=== PATIENT | male | born 1985 | race Caucasian/White ===

== ENCOUNTER 2016-08-20 00:26 | Day surgery (SDC) | payer OTHER ==
[~2016-08-20] VITALS: Ht 190.5 cm; Wt 88.6 kg
[~2016-08-20 00:26] MED LIST: PRD20T PO
[2016-08-20] MEDS ORDERED: GLUCAGON EMERGENCY 1 MG/KIT ONE (00:35)
[2016-08-20] MEDS ORDERED: GLUCAGON EMERGENCY 1 MG/KIT IV ONE ×2 (00:45→01:00)
[2016-08-20] MEDS ORDERED: OMEP40CA36 PO (00:58)
[2016-08-20] MEDS ORDERED: PANTOPRAZOLE 40 MG/10 ML (PROTONIX) VIAL IV ONE (01:15)
[2016-08-20] MEDS ORDERED: LORazepam INJ 2 MG/ML (ATIVAN) VIAL IVP ONE (01:15)
[2016-08-20] MEDS ORDERED: ONDANSETRON 4 MG/2 ML (SDV) Z0FRAN IVP ONE (01:15)
[2016-08-20] MEDS ORDERED: METOCLOPRAMIDE INJ 10 MG/2 ML (REGLAN) IVP ONE (01:15)
[2016-08-20 02:22] VITALS: BP 119/78
[2016-08-20] MEDS ORDERED: D5 1/2 NS 1000 ML IV SOLUTION 1,000 ML IV ONE (02:29)
[2016-08-20] MEDS: D5 1/2 NS 1000 ML IV SOLUTION 1,000 ML IV SCH ×2 (02:38→03:40)
[2016-08-20] MEDS ORDERED: ONDANSETRON 4 MG/2 ML (SDV) Z0FRAN IVP PRN (03:45)
[2016-08-20 04:02] VITALS: BP 129/85
[2016-08-20] MEDS ORDERED: CATHETER FLUSH 10 ML SYR IV PRN (05:00)
--- NOTE | 2016-08-20 05:04 | ED GI ---
General Chief Complaint: Foreign Body Stated Complaint: ESOPHAGEAL OBSTRUCTION Nursing Triage Note: PT STATES HAS PIECE OF STEAK CAUGHT IN THROAT FOR APPROX 3 HOURS Sepsis Screen: No Definite Risk Source of Information: Patient History of Present Illness Time Seen By Provider: 00:33 Initial Comments PT STATES HE WAS EATING STEAK TONIGHT AND IT HAS BECOME STUCK AND NOW CANNOT EVEN SWALLOW SALIVA--COMES BACK UP STATES IT OCCURRED 3 HOURS AGO HE STATES IT HAS HAPPENED MULTIPLE TIMES OVER THE LAST COUPLE OF YEARS, BUT HAS ALWAYS BEEN ABLE TO GET IT UNSTUCK, AND HAS NEVER SOUGHT CARE AT ANY TIME FOR THIS PROBLEM C/O MUCH PRESSURE IN CHEST--"FEELS LIKE A BIG GAS BUBBLE" NO CHOKING OR DIFFICULTY BREATHING OR WHEEZING. PCP: DR. HAWKINS Allergies and Home Medications Allergies Coded Allergies: sulfamethoxazole (Verified Allergy, Intermediate, RASH, 11/05/13) trimethoprim (Verified Allergy, Intermediate, RASH, 11/05/13) Penicillins (Verified Allergy, Unknown, HIVES, 11/05/13) Home Medications Omeprazole 40 Mg Capsule.dr, 40 MG PO DAILY, (Reported) Review of Systems Constitutional: no symptoms reported Respiratory: No Symptoms Reported Cardiovascular: See HPI Gastrointestinal: See HPI Genitourinary: No Symptoms Reported Musculoskeletal: no symptoms reported Skin: no symptoms reported Psychiatric/Neurological: No Symptoms Reported Endocrine: No Symptoms Reported Hematologic/Lymphatic: No Symptoms Reported Past Mhfndac-Aczrzk-Qphwnw Hx Patient Social History Alcohol Use: Denies Use Recreational Drug Use: No Smoking Status: Never a Smoker Recent Foreign Travel: No Contact w/Someone Who Travel: No Recent Infectious Disease Expo: No Recent Hopitalizations: No Physical Abuse Screen: No Sexual Abuse: No Immunizations Up To Date Tetanus Booster (TDap): Less than 5yrs Seasonal Allergies Seasonal Allergies: No Surgeries HX Surgeries: Yes (RIGHT KNEE/LEG FOR FX WHEN YOUNG) Surgeries: Orthopedic Respiratory Hx Respiratory Disorders: No Cardiovascular Hx Cardiac Disorders: No Neurological Hx Neurological Disorders: No Genitourinary Hx Genitourinary Disorders: No Gastrointestinal Hx Gastrointestinal Disorders: Yes (SELF-DX OF GERD; ESOPHAGEAL OBSTRUCTIONS) Gastrointestinal Disorders: Gastroesophageal Reflux Musculoskeletal Hx Musculoskeletal Disorders: Yes (RIGHT KNEE/LEG FX AND SURGICAL REPAIR CHILD) Endocrine Hx Endocrine Disorders: No HEENT HX ENT Disorders: No Cancer Hx Cancer: No Psychosocial Hx Psychiatric Problems: No Integumentary HX Skin/Integumentary Disorder: No Blood Transfusions Hx Blood Disorders: No Adverse Reaction to a Blood Tr: No Physical Exam Vital Signs VS - Last 72 Hours, by Label 08/20/16 00:40 Temp 98.5 Pulse 133 Resp 18 B/P (MAP) 126/88 Pulse Ox 96 Capillary Refill : Less Than 3 Seconds General Appearance: WD/WN, no apparent distress, other (TALKS WITHOUT DIFFICULTY, BUT SPITTING OUT SALIVA) Respiratory: chest non-tender, normal breath sounds, no respiratory distress, no accessory muscle use Cardiovascular: regular rate, rhythm, no edema, no murmur Gastrointestinal: normal bowel sounds, non tender, soft, no organomegaly, no pulsatile mass Extremities: normal inspection Back: normal inspection Neurologic/Psychiatric: cloth burler II-XII nml as tested, no motor/sensory deficits, alert, normal mood/affect, oriented x 3 Skin: normal color, warm/dry Progress/Results/Core Measures Results/Orders My Orders Orders - DAWN MARTINEZ DO Chest Pa/Lat (2 View) (08/20/16 00:34) Saline Lock/Iv-Start (08/20/16 00:37) Glucagon Emergency Kit (Glucagon Emergen (08/20/16 00:45) Glucagon Emergency Kit (Glucagon Emergen (08/20/16 00:35) Glucagon Emergency Kit (Glucagon Emergen (08/20/16 01:00) Medications Given in ED Current Medications Medications Dose Ordered Sig/Jose Luis Route Start Time Stop Time Status Last Admin Dose Admin Glucagon 1 mg ONCE ONCE IV 08/20/16 00:45 08/20/16 00:46 DC 08/20/16 00:45 1 MG Glucagon 1 mg ONCE ONCE IV 08/20/16 01:00 08/20/16 01:01 DC 08/20/16 00:58 1 MG Vital Signs/I&O Vital Sign - Last 12Hours 08/20/16 00:40 Temp 98.5 Pulse 133 Resp 18 B/P (MAP) 126/88 Pulse Ox 96 Blood Pressure Mean: 100 Progress Note : Progress Note PT DID VOMIT A LARGE AMOUNT OF LIQUID AND SOME FOOD DEBRIS IN XRAY DEPT, PRIOR TO GETTING CXR PT GIVEN AN ADDITIONAL DOSE OF GLUCAGON, THEN TRIED TO DRINK WATER--WITHOUT SUCCESS--BEGAN SPITTING UP SALIVA AND WATER AGAIN Diagnostic Imaging Comments CXR--NO ACUTE PROCESS, PENDING RADIOLOGIST REVIEW Reviewed: Reviewed by Me Departure Communication Progress Notes 0110--SPOKE WITH DR. RAWLS, ACCEPTS PT FOR ADMIT. ORDERS NOTED. Impression Impression: Primary Impression: Esophageal obstruction due to food impaction Disposition: ADMITTED INPATIENT Condition: Stable Decision to Admit Reason: Admit from ER (General) Decision to Admit/Date: Aug 20, 2016 Time/Decision to Admit Time: 01:10 Departure-Patient Inst. Referrals: GUILLERMINA HAWKINS MD (PCP) Primary Care Physician DAWN MARTINEZ DO Aug 20, 2016 05:04
[2016-08-20] MEDS: LORazepam INJ 2 MG/ML (ATIVAN) VIAL IVP SCH ×3 (05:19→13:30)
[2016-08-20] MEDS ORDERED: CATHETER FLUSH 10 ML SYR IV SCH (06:00)
[2016-08-20 06:33] LABS: BASOPHILS # (AUTO) 0.1 10^3/uL (0.0-0.1); BASOPHILS % (AUTO) 0 % (0-10); EOSINOPHILS # (AUTO) 0.1 10^3/uL (0.0-0.3); EOSINOPHILS % (AUTO) 1 % (0-10); LYMPHOCYTES # (AUTO) 1.8 X 10^3 (1.0-4.0); LYMPHOCYTES % (AUTO) 14 % (12-44); MEAN CORPUSCULAR HEMOGLOBIN 32 PG (25-34); MEAN CORPUSCULAR HGB CONC 35 G/DL (32-36); MEAN CORPUSCULAR VOLUME 92 FL (80-99); MEAN PLATELET VOLUME 10.1 FL (7.4-10.4); MONOCYTES # (AUTO) 1.2 X 10^3 (0.0-1.0); MONOCYTES % (AUTO) 9 % (0-12); NEUTROPHILS # (AUTO) 9.7 X 10^3 (1.8-7.8); NEUTROPHILS % (AUTO) 76 % (42-75); PLATELET COUNT 297 10^3/uL (130-400); RED BLOOD COUNT 4.53 10^6/uL (4.35-5.85); RED CELL DISTRIBUTION WIDTH 12.8 % (10.0-14.5); WHITE BLOOD COUNT 12.7 10^3/uL (4.3-11.0)
--- NOTE | 2016-08-20 06:36 | Diagnostic Imaging Report ---
Clinical indication: Evaluate chest. Exam: Chest x-ray PA and lateral views. Comparisons: None. Findings: Lungs/pleura: Lungs are clear. There is no pneumothorax. There is no pleural effusion. Mediastinum: Unremarkable. Pulmonary vasculature: Unremarkable. Heart: Unremarkable. Bones/extrathoracic soft tissue: Unremarkable. Impression: There is no radiographic evidence of acute cardiopulmonary process. Dictated by: Dictated on workstation # [id number]
[2016-08-20 06:55] LABS: ALANINE AMINOTRANSFERASE 21 U/L (0-55); ALBUMIN 4.7 G/DL (3.2-4.5); ANION GAP 12 MMOL/L (5-14); ASPARTATE AMINO TRANSFERASE 23 U/L (5-34); BILIRUBIN,TOTAL 1.4 MG/DL (0.1-1.0); BLOOD UREA NITROGEN 14 MG/DL (7-18); BUN/CREATININE RATIO 13; CALCIUM 9.4 MG/DL (8.5-10.1); CARBON DIOXIDE 23 MMOL/L (21-32); CHLORIDE 109 MMOL/L (98-107); CREATININE SERUM 1.05 MG/DL (0.60-1.30); GFR ESTIMATED > 60; GLUCOSE 97 MG/DL (70-105); POTASSIUM 3.7 MMOL/L (3.6-5.0); SODIUM 144 MMOL/L (135-145); TOTAL PROTEIN 7.5 G/DL (6.4-8.2)
[2016-08-20 08:00] VITALS: BP 134/83
[2016-08-20] MEDS ORDERED: MULT-35 PO (08:17)
[2016-08-20] MEDS: METOCLOPRAMIDE INJ 10 MG/2 ML (REGLAN) IVP SCH ×2 (08:37→12:30)
[2016-08-20] MEDS ORDERED: PANTOPRAZOLE 40 MG/10 ML (PROTONIX) VIAL IV SCH (09:00)
--- NOTE | 2016-08-20 09:14 | HISTORY AND PHYSICAL ---
DATE OF ADMISSION: 08/20/2016 ATTENDING PRIMARY CARE PHYSICIAN: Dr. Tom Bonilla Mr. Jn Vasquez is a 31-year-old male who presented late last night with dysphagia and coughing. He reports he has had this issue for the past 3 years after eating a meal and certain food boluses however, this time this has persisted longer. He reports that he has had a history of heartburn and reflux for several years now and he states that this is usually precipitated by alcohol. He has been taking omeprazole 40 mg daily; however, states that he does forget to take it on some occasions and has heartburn becomes worse. On this episode he had dinner last night and felt chest pressure sensation followed by a cough that would not reduce. He does not report any hematemesis, no coffee-ground emesis. PAST MEDICAL HISTORY: 1. Gastroesophageal reflux disease. 2. Peptic ulcer disease. PAST SURGERIES: Left knee arthroscopy. ALLERGIES: PENICILLIN MEDICATIONS: Omeprazole 40 mg daily. SOCIAL HISTORY: Negative smoke. Social alcohol. FAMILY HISTORY: Noncontributory. VITAL SIGNS: Stable, afebrile. REVIEW OF SYSTEMS: This is a well-nourished male, currently in no acute distress. He is not experiencing shortness of breath or difficulty breathing. Mild substernal chest pressure sensation as well as hiccups. Frequent episodes of regurgitation, however, this has slightly improved over time. No diarrhea, constipation. No red blood per rectum. No dark tarry stools. No fever or chills. No recent inadvertent weight loss. PHYSICAL EXAMINATION: CHEST: Clear. HEART: Regular. EXTREMITIES: No lower extremity edema. Negative Homans sign. HEENT: No scleral icterus. No cervical lymphadenopathy. ABDOMEN: Soft, nontender, nondistended. ASSESSMENT AND PLAN: 31-year-old male with dysphagia most likely secondary to reflux esophagitis and esophageal stricture. We will proceed with an EGD, as well as biopsies and possible balloon dilatation. Job ID: [id number] Dictated Date: 08/20/2016 08:06:57 Rip Machine Operator Date: 08/20/2016 09:08:40/mani
--- NOTE | 2016-08-20 10:11 | Conscious Sedation/ASA ---
Conscious Sedation Pre-Proced Time Reviewed: 10:00 ASA Class: 2 Airway Mallampati Classification: (solomon appropriate class) I. II. III, IV Lungs Heart ASA score ASA 1: a normal healthy patient ASA 2: a patient with a mild systemic disease (mid diabetes, controlled hypertension, obesity ASA 3: a patient with a severe systemic disease that limits activity (angina , COPD, prior Myocardial infarction) ASA 4: a patient with an incapacitating disease that is a constant threat to life (CHF, renal failure) ASA 5: a moribund patient not expected to survive 24 hrs. (ruptured aneurysm) ASA 6: a declared brain patient whose organs are being harvested. For emergent operations, add the letter E after the classification Grade 2 Sedation Plan: Analgesia, Amnesia, Plan communicated to team members, Discussed options with patient/fam, Discussed risks with patient/fam Note The patient is an appropriate candidate to undergo the planned procedure, sedation, and anesthesia. The patient immediately re-assessed prior to indication. MELLY RAWLS MD Aug 20, 2016 10:11 am
--- NOTE | 2016-08-20 10:12 | Progress Note-Pre Operative ---
Pre-Operative Progress Note H&P Reviewed The H&P was reviewed, patient examined and no changes noted. Date H&P Reviewed: Aug 20, 2016 Time H&P Reviewed: 10:00 Pre-Operative Diagnosis: dysphagia, GERD MELLY RAWLS MD Aug 20, 2016 10:12 am
[2016-08-20] MEDS ORDERED: fentaNYL INJECTION 100 MCG/2 ML AMP ONE (10:18)
[2016-08-20] MEDS ORDERED: HURRICAINE EXT TUBE (BENZOCAINE) ONE (10:18)
[2016-08-20] MEDS ORDERED: NS IV 500 ML 500 ML ONE (10:18)
[2016-08-20] MEDS ORDERED: MIDAZOLAM 2 MG/2 ML (VERSED) VIAL ONE ×5 (10:18→10:30)
[2016-08-20] MEDS ORDERED: LIDOCAINE JELLY 2% (XYLOCAINE) 5 ML TUBE ONE (10:18)
[2016-08-20] MEDS: fentaNYL INJECTION 100 MCG/2 ML AMP IVP PRN ×2 (10:23→10:30)
[2016-08-20] MEDS ORDERED: NS IV 500 ML 500 ML IV PRN (10:23)
[2016-08-20] MEDS: MIDAZOLAM 2 MG/2 ML (VERSED) VIAL IVP PRN ×4 (10:25→10:35)
[2016-08-20] MEDS ORDERED: LIDOCAINE JELLY 2% (XYLOCAINE) 5 ML TUBE MM PRN (11:15)
[2016-08-20] MEDS ORDERED: HURRICAINE EXT TUBE (BENZOCAINE) XX PRN (11:15)
[2016-08-20] MEDS ORDERED: NALOXONE 0.4 MG/ML 1 ML (NARCAN) VIAL IVP PRN (11:15)
[2016-08-20] MEDS ORDERED: FLUMAZENIL (ROMAZICON) 0.1 MG/ML 5 ML VIAL INJ PRN (11:15)
[2016-08-20 11:53] VITALS: BP 107/64
[2016-08-20] MEDS ORDERED: SUCR1TAB36 PO (14:03)
[2016-08-20] MEDS ORDERED: PANT40TA2 PO (14:03)
[2016-08-20 14:28] VITALS: BP 107/64
--- NOTE | 2016-08-21 11:13 | OPERATIVE REPORT ---
PROCEDURE PHYSICIAN: MELLY RAWLS DATE OF PROCEDURE: 08/20/2016 ATTENDING PRIMARY CARE PHYSICIAN: Dr. Bonilla. PREOPERATIVE DIAGNOSES: 1. Dysphagia. 2. Gastroesophageal reflux disease. POSTOPERATIVE DIAGNOSES: 1. Severe reflux esophagitis, between class C and D with some superficial erosions. 2. No hiatal hernia. 3. Moderate severity gastritis of the stomach, as well as the pylorus. PROCEDURE: EGD with biopsy and balloon dilatation of the distal esophagus. SURGEON: Dr. Rawls. ANESTHESIA: Conscious sedation. ESTIMATED BLOOD LOSS: Minimal. FINDINGS: 1. Severe reflux esophagitis, between class C and D with some superficial erosions. 2. No hiatal hernia. 3. Moderate severity gastritis throughout the stomach and pylorus with no formal ulcers or distal obstructions. DISPOSITION: The patient tolerated the procedure well. BRIEF HISTORY: Mr. Jn Vasquez is a 31-year-old male who presented early this morning with dysphagia and coughing. He reports that he has had similar issues to this in the past 2 years after eating a meal or certain food boluses however, this time this had persisted longer. He has a history of heartburn and reflux for several years and has been taking omeprazole 40 mg daily. He reports that he does drink alcohol on the weekends, which does make his symptoms worse. After the previous night's dinner he felt chest pressure sensation follow by a cough that would not reduce. He did not report any hematemesis, no coffee-ground emesis. PROCEDURE: The patient was brought to the endoscopy suite, laid in the left lateral decubitus position with the head slightly elevated. After adequate IV pain and sedative medications and conscious sedation anesthesia, the mouthpiece was applied. The endoscope was placed in the mouth, visualizing the pharynx and hypopharyngeal region. Vocal cords, epiglottis and vallecula identified and appeared to be normal. The endoscope was then advanced through the first, second, and 3rd portions of the esophagus. At the level of the GE junction a severe reflux esophagitis, between class C and D was identified. There were some erosions identified in this region as well. There was also edema of the mucosal layer. Biopsies were taken with forceps with visualization of good hemostasis. The endoscope was then advanced in stomach and endoscope retroflexed visualizing no hiatal hernia. There was a moderate severity gastritis throughout the stomach, as well as the pylorus; however, no formal ulcers, polyps or any neoplasms. The duodenum appeared normal with no distal obstructions. A biopsy was taken of the stomach antrum as well. We then directed our attention to dilatation of the distal esophagus. A CRE fixed guidewire balloon was placed into the stomach and then retracted back to the area of the edema. The balloon was dilated to 3 atmospheres of pressure then 4.5 and then 7 atmospheres of pressure, approximately 18 mm. There is mild resistance. This was left in place for approximately 60 seconds. The balloon was then desufflated and removed. No mucosal tears were identified. The endoscope was then slowly withdrawn while taking a second look and suctioning of residual air with no additional findings. The patient tolerated the procedure well. We will have him continue with medical management with the necessary lifestyle and diet accommodation including smaller, more frequent meals, avoidance of eating at night, as well as head elevation while lying supine. He also needs to avoid alcohol, caffeinated beverages, as well as spicy, greasy and acidic foods. We will also start him on Protonix 40 mg daily, as well as Carafate 1 gram q.i.d. for the next 2 weeks then on a p.r.n. basis. Job ID: [id number] Dictated Date: 08/20/2016 20:29:10 Compliance Mgr Date: 08/21/2016 11:03:46 / mani
--- OUTSIDE RECORDS SUMMARY | 2016-09-20 18:42 | XMS REPORT | Continuity of Care Document ---
Author Author [facility] Address Unknown Phone Unavailable Allergies Active Description Code Type Severity Reaction Onset Reported/Identified Relationship to Patient Clinical Status Yes Penicillins Drug Allergy N/A N/A 09/08/2012 Yes sulfamethoxazole [id number] Drug Allergy Moderate RASH 08/20/2016 Yes trimethoprim [id number] Drug Allergy Moderate RASH 08/20/2016 Yes Penicillins [id number] Drug Allergy Unknown HIVES 08/20/2016 Medications Problems Date Dx Coded Attending Type Code Diagnosis Diagnosed By 11/28/2007 311 MO DEPRESSIVE DISORDER NOS 11/28/2007 311 MO DEPRESSIVE DISORDER NOS 11/28/2007 311 MO DEPRESSIVE DISORDER NOS 11/28/2007 311 MO DEPRESSIVE DISORDER NOS 11/28/2007 DARINEL GARRISON APRN 311 MO DEPRESSIVE DISORDER NOS 11/28/2007 DARINEL GARRISON APRN 311 MO DEPRESSIVE DISORDER NOS 11/28/2007 DARINEL GARRISON APRN 311 MO DEPRESSIVE DISORDER NOS 11/28/2007 DARINEL GARRISON APRN 311 MO DEPRESSIVE DISORDER NOS 11/28/2007 DARIELA CHAMBERS APRN 311 MO DEPRESSIVE DISORDER NOS 11/28/2007 OLMAN THOMAS APRN 311 MO DEPRESSIVE DISORDER NOS 12/14/2007 300.00 AN ANXIETY UNSPEC 12/14/2007 300.00 AN ANXIETY UNSPEC 12/14/2007 300.00 AN ANXIETY UNSPEC 12/14/2007 300.00 AN ANXIETY UNSPEC 12/14/2007 DARINEL GARRISON APRN 300.00 AN ANXIETY UNSPEC 12/14/2007 DARINEL GARRISON APRN 300.00 AN ANXIETY UNSPEC 12/14/2007 DARINEL GARRISON APRN 300.00 AN ANXIETY UNSPEC 12/14/2007 DARINEL GARRISON APRN 300.00 AN ANXIETY UNSPEC 12/14/2007 DARIELA CHAMBERS APRN 300.00 AN ANXIETY UNSPEC 12/14/2007 OLMAN THOMAS APRN 300.00 AN ANXIETY UNSPEC 01/02/2008 V58.69 MEDICATION HIGH RISK 01/02/2008 V58.69 MEDICATION HIGH RISK 01/02/2008 V58.69 MEDICATION HIGH RISK 01/02/2008 V58.69 MEDICATION HIGH RISK 01/02/2008 DARINEL GARRISON APRN V58.69 MEDICATION HIGH RISK 01/02/2008 DARINEL GARRISON APRN V58.69 MEDICATION HIGH RISK 01/02/2008 DARINEL GARRISON APRN V58.69 MEDICATION HIGH RISK 01/02/2008 DARINEL GARRISON APRN V58.69 MEDICATION HIGH RISK 01/02/2008 DARIELA CHAMBERS APRN V58.69 MEDICATION HIGH RISK 01/02/2008 OLMAN THOMAS APRN V58.69 MEDICATION HIGH RISK 09/08/2012 314.01 ADHD COMBINED 09/08/2012 314.01 ADHD COMBINED 09/08/2012 314.01 ADHD COMBINED 09/08/2012 314.01 ADHD COMBINED 09/08/2012 DARINEL GARRISON APRN 314.01 ADHD COMBINED 09/08/2012 DARINEL GARRISON APRN 314.01 ADHD COMBINED 09/08/2012 DARINEL GARRISON APRN 314.01 ADHD COMBINED 09/08/2012 DARINEL GARRISON APRN 314.01 ADHD COMBINED 09/08/2012 DARIELA CHAMBERS APRN R 314.01 ADHD COMBINED 09/08/2012 OLMAN THOMAS APRN 314.01 ADHD COMBINED 10/12/2013 DARIELA CHAMBERS APRN R 300.23 AN SOCIAL PHOBIA 10/12/2013 DARIELA CHAMBERS APRN R 305.00 NONDEPENDENT ALCOHOL ABUSE UNSPECIFIED DRINKING BEHAVIOR 10/12/2013 DARIELA CHAMBERS APRN R 461.9 SINUSITIS ACUTE 10/12/2013 OLMAN THOMAS APRN 300.23 AN SOCIAL PHOBIA 10/12/2013 OLMAN THOMAS APRN 305.00 NONDEPENDENT ALCOHOL ABUSE UNSPECIFIED DRINKING BEHAVIOR 10/12/2013 OLMAN THOMAS APRN 461.9 SINUSITIS ACUTE 11/05/2013 GREGG HUYNH, BABATUNDE Mejia Ot 708.9 URTICARIA NOS 08/20/2016 MELLY RAWLS MD, Ot K21.0 GASTRO-ESOPHAGEAL REFLUX DISEASE WITH ES 08/20/2016 MELLY RAWLS MD, Ot K29.70 GASTRITIS, UNSPECIFIED, WITHOUT BLEEDING 08/27/2016 MELLY RAWLS MD, Ot K21.0 GASTRO-ESOPHAGEAL REFLUX DISEASE WITH ES 08/27/2016 MELLY RAWLS MD, Ot K29.70 GASTRITIS, UNSPECIFIED, WITHOUT BLEEDING Procedures Code [place] [address] URINE DRUG SCREEN (IN-HOUSE) 09/08/2012 29507 PSYCH DIAG EVAL W/MED SRVCS 09/13/2012 63779 URINE DRUG SCREEN (IN-HOUSE) 09/29/2012 43231 URINE DRUG SCREEN (IN-HOUSE) 02/02/2013 49491 URINE DRUG SCREEN (IN-HOUSE) 02/16/2013 47530 DRUG CONFIRMATION 02/19/2013 07641 STREP A (IN-HOUSE) 10/12/2013 Results Test Result Range Complete blood count (CBC) with automated white blood cell (WBC) differential - 08/20/16 06:20 Blood leukocytes automated count (number/volume) 12.7 10*3/ uL 4.3-11.0 Blood erythrocytes automated count (number/volume) 4.53 10*6 /uL 4.35-5.85 Venous blood hemoglobin measurement (mass/volume) 14.6 g/dL 13.3-17.7 Blood hematocrit (volume fraction) 42 % 40-54 Automated erythrocyte mean corpuscular volume 92 [foz_us] 80-99 Automated erythrocyte mean corpuscular hemoglobin (mass per erythrocyte) 32 pg 25-34 Automated erythrocyte mean corpuscular hemoglobin concentration measurement ( mass/volume) 35 g/dL 32-36 Automated erythrocyte distribution width ratio 12.8 % 10.0-14.5 Automated blood platelet count (count/volume) 297 10*3/uL 130-400 Automated blood platelet mean volume measurement 10.1 [foz_ us] 7.4-10.4 Automated blood neutrophils/100 leukocytes 76 % 42-75 Automated blood lymphocytes/100 leukocytes 14 % 12-44 Blood monocytes/100 leukocytes 9 % 0-12 Automated blood eosinophils/100 leukocytes 1 % 0-10 Automated blood basophils/100 leukocytes 0 % 0-10 Blood neutrophils automated count (number/volume) 9.7 10*3 1.8-7.8 Blood lymphocytes automated count (number/volume) 1.8 10*3 1.0-4.0 Blood monocytes automated count (number/volume) 1.2 10*3 0.0-1.0 Automated eosinophil count 0.1 10*3/uL 0.0-0.3 Automated blood basophil count (count/volume) 0.1 10*3/uL 0.0-0.1 Comprehensive metabolic panel - 08/20/16 06:20 Serum or plasma sodium measurement (moles/volume) 144 mmol/ L 135-145 Serum or plasma potassium measurement (moles/volume) 3.7 mmol/L 3.6-5.0 Serum or plasma chloride measurement (moles/volume) 109 mmol /L 98-107 Carbon dioxide 23 mmol/L 21-32 Serum or plasma anion gap determination (moles/volume) 12 mmol/L 5-14 Serum or plasma urea nitrogen measurement (mass/volume) 14 mg/dL 7-18 Serum or plasma creatinine measurement (mass/volume) 1.05 mg /dL 0.60-1.30 Serum or plasma urea nitrogen/creatinine mass ratio 13 NRG Serum or plasma creatinine measurement with calculation of estimated glomerular filtration rate > NRG Serum or plasma glucose measurement (mass/volume) 97 mg/dL 70-105 Serum or plasma calcium measurement (mass/volume) 9.4 mg/dL 8.5-10.1 Serum or plasma total bilirubin measurement (mass/volume) 1.4 mg/dL 0.1-1.0 Serum or plasma alkaline phosphatase measurement (enzymatic activity/volume) 70 U/L 40-136 Serum or plasma aspartate aminotransferase measurement (enzymatic activity/ volume) 23 U/L 5-34 Serum or plasma alanine aminotransferase measurement (enzymatic activity/volume ) 21 U/L 0-55 Serum or plasma protein measurement (mass/volume) 7.5 g/dL 6.4-8.2 Serum or plasma albumin measurement (mass/volume) 4.7 g/dL 3.2-4.5 Encounters ACCT No. Visit Date/Time Discharge Status Pt. Type Provider Facility Loc./Unit Complaint [id number] 10/12/2013 13:18:00 10/12/2013 23: 59:59 CLS Outpatient DARIELA CHAMBERS APRN [id number] 10/12/2013 11:48:00 10/12/2013 23: 59:59 CLS Outpatient OLMAN THOMAS APRN [id number] 09/12/2013 12:41:00 09/12/2013 23: 59:59 CLS Outpatient DARINEL GARRISON APRN [id number] 02/16/2013 16:23:00 02/16/2013 23: 59:59 CLS Outpatient DARINEL GARRISON APRN [id number] 02/02/2013 09:44:00 02/02/2013 23: 59:59 CLS Outpatient DARINEL GARRISON APRN [id number] 02/02/2013 09:44:00 02/02/2013 23: 59:59 CLS Outpatient DARINEL GARRISON APRN [id number] 11/04/2012 13:36:00 Document Registration [id number] 11/04/2012 13:36:00 Document Registration [id number] 09/29/2012 10:49:00 Document Registration [id number] 09/08/2012 13:55:00 Document Registration
--- OUTSIDE RECORDS SUMMARY | 2016-09-20 19:25 | XMS REPORT | Continuity of Care Document ---
Author Author [facility] Address Unknown Phone Unavailable Allergies Active Description Code Type Severity Reaction Onset Reported/Identified Relationship to Patient Clinical Status Yes Penicillins Drug Allergy N/A N/A 09/08/2012 Yes sulfamethoxazole [id number] Drug Allergy Moderate RASH 08/20/2016 Yes trimethoprim [id number] Drug Allergy Moderate RASH 08/20/2016 Yes Penicillins [id number] Drug Allergy Unknown HIVES 08/20/2016 Medications Problems [...] Procedures Code Description [place] [address] URINE DRUG SCREEN (IN-HOUSE) 09/08/2012 85070 PSYCH DIAG EVAL W/MED SRVCS 09/13/2012 43338 URINE DRUG SCREEN (IN-HOUSE) 09/29/2012 44175 URINE DRUG SCREEN (IN-HOUSE) 02/02/2013 57881 URINE DRUG SCREEN (IN-HOUSE) 02/16/2013 83266 DRUG CONFIRMATION 02/19/2013 89278 STREP A (IN-HOUSE) 10/12/2013 Results Test Result [...] Status Pt. Type Provider Facility Loc./Unit Complaint [id number] 10/12/2013 13:18:00 10/12/2013 23: 59:59 CLS Outpatient DARIELA CHAMBERS APRN [id number] 10/12/2013 11:48:00 10/12/2013 23: 59:59 CLS Outpatient OLMAN THOMAS APRN [id number] 09/12/2013 12:41:00 09/12/2013 23: 59:59 CLS Outpatient DARINEL GARRISON APRN [id number] 02/16/2013 16:23:00 02/16/2013 23: 59:59 CLS Outpatient DARINEL GARRISON APRN [id number] 02/02/2013 09:44:00 02/02/2013 23: 59:59 CLS Outpatient DARINEL GARRISON APRN [id number] 02/02/2013 09:44:00 02/02/2013 23: 59:59 CLS Outpatient DARINEL GARRISON APRN [id number] 11/04/2012 13:36:00 Document Registration [id number] 11/04/2012 13:36:00 Document Registration [id number] 09/29/2012 10:49:00 Document Registration [id number] 09/08/2012 13:55:00 Document Registration
--- OUTSIDE RECORDS SUMMARY | 2016-09-20 21:51 | XMS REPORT | Continuity of Care Document ---
Author Author [facility] Address Unknown Phone Unavailable Allergies Active Description Code Type Severity Reaction Onset Reported/Identified Relationship to Patient Clinical Status Yes Penicillins Drug Allergy N/A N/A 09/08/2012 Yes sulfamethoxazole [id number] Drug Allergy Moderate RASH 08/20/2016 Yes trimethoprim [id number] Drug Allergy Moderate RASH 08/20/2016 Yes Penicillins [id number] Drug Allergy Unknown HIVES 08/20/2016 Medications Problems [...] Procedures Code Description [place] [address] URINE DRUG SCREEN (IN-HOUSE) 09/08/2012 91045 PSYCH DIAG EVAL W/MED SRVCS 09/13/2012 97153 URINE DRUG SCREEN (IN-HOUSE) 09/29/2012 52997 URINE DRUG SCREEN (IN-HOUSE) 02/02/2013 25988 URINE DRUG SCREEN (IN-HOUSE) 02/16/2013 07555 DRUG CONFIRMATION 02/19/2013 93246 STREP A (IN-HOUSE) 10/12/2013 Results Test Result [...] Status Pt. Type Provider Facility Loc./Unit Complaint [id number] 10/12/2013 13:18:00 10/12/2013 23: 59:59 CLS Outpatient DARIELA CHAMBERS APRN [id number] 10/12/2013 11:48:00 10/12/2013 23: 59:59 CLS Outpatient OLMAN THOMAS APRN [id number] 09/12/2013 12:41:00 09/12/2013 23: 59:59 CLS Outpatient DARINEL GARRISON APRN [id number] 02/16/2013 16:23:00 02/16/2013 23: 59:59 CLS Outpatient DARINEL GARRISON APRN [id number] 02/02/2013 09:44:00 02/02/2013 23: 59:59 CLS Outpatient DARINEL GARRISON APRN [id number] 02/02/2013 09:44:00 02/02/2013 23: 59:59 CLS Outpatient DARINEL GARRISON APRN [id number] 11/04/2012 13:36:00 Document Registration [id number] 11/04/2012 13:36:00 Document Registration [id number] 09/29/2012 10:49:00 Document Registration [id number] 09/08/2012 13:55:00 Document Registration
== END 2016-08-20 14:20 | disposition home or self-care (01) ==
LOC: EDUNIT# 00:26 → ER 00:31 → 4TH 01:10 → UNDOADMOB 01:10 → SDC 02:22 → 4TH 02:22 → SDC 14:20 → UNDODISOB 14:20
PROVIDERS: ATTEND Surgery Pediatric Surgery
DX: K21.0 Gastro-esophageal reflux disease with esophagitis (principal); K29.70 Gastritis, unspecified, without bleeding
CPT/HCPCS: 36415; 71020; 80053; 85025; 88305; 96374; 96375; 99211; G0378

== ENCOUNTER 2018-08-08 13:01 | Emergency (ER) | payer SELFPAY ==
[~2018-08-08] VITALS: Ht 177.8 cm; Wt 63.5 kg
[~2018-08-08 13:01] MED LIST changes: +MULT-35 PO; +OMEP40CA36 PO; +PANT40TA2 PO; +SUCR1TAB36 PO
--- OUTSIDE RECORDS SUMMARY | 2018-08-08 13:08 | XMS REPORT | Continuity of Care Document ---
Author Author [facility] Address Unknown Phone Unavailable Allergies Active Description Code Type Severity Reaction Onset Reported/Identified Relationship to Patient Clinical Status Yes Penicillins Drug Allergy N/A N/A 09/08/2012 Yes sulfamethoxazole [id number] Drug Allergy Moderate RASH 08/20/2016 Yes trimethoprim [id number] Drug Allergy Moderate RASH 08/20/2016 Yes Penicillins [id number] Drug Allergy Unknown HIVES 08/20/2016 Medications There is no data. Problems Date Dx Coded Attending Type Code [...] GARRISON APRN 300.00 AN ANXIETY UNSPEC 12/14/2007 DAIRNEL GARRISON APRN 300.00 AN ANXIETY UNSPEC 12/14/2007 [...] Procedures Code [place] [address] URINE DRUG SCREEN (IN-HOUSE ) 09/08/2012 46592 PSYCH DIAG EVAL W/MED SRVCS 09/13/2012 73707 URINE DRUG SCREEN (IN-HOUSE ) 09/29/2012 76985 URINE DRUG SCREEN (IN-HOUSE ) 02/02/2013 05328 URINE DRUG SCREEN (IN-HOUSE ) 02/16/2013 34391 DRUG CONFIRMATION 02/19/2013 56269 STREP A (IN-HOUSE) 10/12/2013 Results Test Result Range Complete blood count (CBC) with automated white blood cell (WBC) differential - 08/20/16 06:20 Blood leukocytes automated count (number/volume) 12.7 10*3/uL 4.3-11.0 Blood erythrocytes automated count (number/volume) 4.53 10*6/uL 4.35-5.85 Venous blood hemoglobin measurement (mass/volume) 14.6 [...] Automated blood platelet mean volume measurement 10.1 [foz_us] 7.4-10.4 Automated blood neutrophils/100 leukocytes 76 % [...] Serum or plasma sodium measurement (moles/volume) 144 mmol/L 135-145 Serum or plasma potassium measurement (moles/volume) 3.7 mmol/L 3.6-5.0 Serum or plasma chloride measurement (moles/volume) 109 mmol/L 98-107 Carbon dioxide 23 mmol/L 21-32 Serum or plasma anion gap determination (moles/volume) 12 mmol/L 5-14 Serum or plasma urea nitrogen measurement (mass/volume) 14 mg/dL 7-18 Serum or plasma creatinine measurement (mass/volume) 1.05 mg/dL 0.60-1.30 Serum or plasma urea nitrogen/creatinine mass [...] Status Pt. Type Provider Facility Loc./Unit Complaint [id number] 10/12/2013 13:18:00 10/12/2013 23:59:59 CLS Outpatient DARIELA CHAMBERS APRN [id number] 10/12/2013 11:48:00 10/12/2013 23:59:59 CLS Outpatient OLMAN THOMAS APRN [id number] 09/12/2013 12:41:00 09/12/2013 23:59:59 CLS Outpatient DARINEL GARRISON APRN [id number] 02/16/2013 16:23:00 02/16/2013 23:59:59 CLS Outpatient DARINEL GARRISON APRN [id number] 02/02/2013 09:44:00 02/02/2013 23:59:59 CLS Outpatient DARINEL GARRISON APRN [id number] 02/02/2013 09:44:00 02/02/2013 23:59:59 CLS Outpatient DARINEL GARRISON APRN [id number] 11/04/2012 13:36:00 Document Registration [id number] 11/04/2012 13:36:00 Document Registration [id number] 09/29/2012 10:49:00 Document Registration [id number] 09/08/2012 13:55:00 Document Registration [id number] 08/20/2016 02:22:00 08/20/2016 14:20:00 DIS Outpatient MELLY RAWLS MD [facility] SDC ESOPHAGEAL OBSTRUCTION [id number] 09/24/2015 09:09:00 09/24/2015 23:59:59 CLS Outpatient RUDI MELENDREZ [facility] UMER [id number] 11/05/2013 01:37:00 11/05/2013 02:49:00 DIS Emergency BABATUNDE ESCOBEDO MD [facility] ER ALLERGIC REACTION
[2018-08-08] MEDS ORDERED: LORazepam 0.5 MG (ATIVAN) TABLET PO STA (13:22)
--- NOTE | 2018-08-08 13:32 | ED Psychosocial ---
General Chief Complaint: Psych/Social Disorder Stated Complaint: PARANOID, HEARING VOICES Source: patient, family (Dad) Exam Limitations: no limitations History of Present Illness Date Seen by Provider: Aug 08, 2018 Time Seen by Provider: 13:04 Initial Comments Patient presents to ER by private conveyance with his father and chief complaint that for the past 10 days she's had progressively worsening episode of paranoia, audiovisual hallucinations. He is hearing voices and has a feeling that someone is following him and someone is trying to poison him and is afraid that all of this is going to end up on the news at night . He denies a history of schizophrenia or recreational drug use with the exception of about one week ago he used marijuana. He is a intermittent marijuana user. He's not a smoker but he does drink a lot of alcohol he says anywhere from 6 beers upwards of several fifths of vodka or whiskey every degrees hands on. Is not currently employed and treat his depression with alcohol. He says he has not drank in the past 3 days because he was having severe decompensation of his delusions, paranoia and other symptoms and called his dad's was dad came and picked him up and brought him home and since she's been with his dad on Wednesday night, 3 days ago he has been off alcohol. He's never had DTs or withdrawal tremors/ seizures. He's never been inpatient psychiatric hospitalized or inpatient alcohol and drug addiction treatment. His dad suspects that the paranoia and delusions are secondary to the alcohol because she's been having it for a long time and just in the past several months is gotten worse. He has no history of being diagnosed with schizophrenia. He does not routinely follow with a primary care doctor but he did see Dr. Bonilla once for his acid reflux. He's had an EGD by Dr. Haile which was unremarkable. He's been having some burning sensation in his chest and so he's been using antacids with good relief. He denies any other significant medical history and other than the Nexium and occasional antacid tablet he does not use a routine medicines. He's also been experiencing insomnia for the past several days. Dad remarks there is no family history of psychosis or schizophrenia. He says for the past several months he's been using alcohol to deal with his depression and suicidal ideation but he's had no suicidal intention. When asked if he has a plan he says he plans to get better and does not want to kill himself. No previous history of suicide attempt or inpatient psychiatric hospitalization. Allergies and Home Medications Allergies Coded Allergies: sulfamethoxazole (Verified Allergy, Intermediate, RASH, 11/05/13) trimethoprim (Verified Allergy, Intermediate, RASH, 11/05/13) Penicillins (Verified Allergy, Unknown, HIVES, 11/05/13) Home Medications Cephalexin 500 Mg Tablet, 500 MG PO BID Prescribed by: SHANTANU ADAME on 08/08/18 1557 Multivitamin 1 Each Tablet, 1 TAB PO DAILY, (Reported) Pantoprazole Sodium 40 Mg Tablet.dr, 40 MG PO DAILY Prescribed by: KEREN ALAN on 08/20/16 1403 Permethrin 60 Gm Cream..g., 60 GM TP ONCE Apply from the neck down to the toes at night then wear pajamas to bed. Bathe in the morning. Repeat in 2 weeks. Prescribed by: SHANTANU ADAME on 08/08/18 1507 Sucralfate 1 Gm Tablet, 1 GM PO QID Prescribed by: KEREN ALAN on 08/20/16 1403 Patient Home Medication List Home Medication List Reviewed: Yes Review of Systems Constitutional: No chills, No fever EENTM: No ear discharge, No ear pain Respiratory: No cough, No dyspnea on exertion, No hemoptysis, No orthopnea, No phlegm; short of breath (mild); No wheezing Cardiovascular: No chest pain, No edema Gastrointestinal: see HPI (GERD); No abdominal pain, No constipation, No diarrhea, No dysphagia Genitourinary: No discharge, No dysuria Musculoskeletal: No back pain, No joint pain Skin: rash (itchy red nodules on his hands dorsally for the past several months ) Past Dtvxcgt-Sibdnh-Mkmppz Hx Patient Social History Alcohol Use: Regular Use Alcohol Beverage of Choice: Beer, Cheap Liquor, Vodka Recreational Drug Use: Yes Drug of Choice: marijuana Smoking Status: Former Smoker Type Used: Cigarettes Recent Foreign Travel: No Contact w/Someone Who Travel: No Recent Hopitalizations: No Immunizations Up To Date Tetanus Booster (TDap): Less than 5yrs Seasonal Allergies Seasonal Allergies: No Past Medical History Surgeries: No Orthopedic Respiratory: No Cardiac: No Neurological: No Genitourinary: No Gastrointestinal: Yes (Esophogeal problems) Gastroesophageal Reflux Musculoskeletal: No Endocrine: No HEENT: No Cancer: No Psychosocial: No Integumentary: No Blood Disorders: No Adverse Reaction/Blood Tranf: No Physical Exam Vital Signs - First Documented 08/08/18 13:15 Temp 98.5 Pulse 123 Resp 18 B/P (MAP) 159/81 (107) Pulse Ox 97 O2 Delivery Room Air Capillary Refill : Height, Weight, BMI Height: 6'3.00" Weight: 195lbs. 5.0oz. [id number]; 24.4 BMI Method:Stated General Appearance: WD/WN, mild distress HEENT: PERRL/EOMI, normal ENT inspection, pharynx normal Neck: non-tender, full range of motion, supple, normal inspection Respiratory: chest non-tender, lungs clear, normal breath sounds, no respiratory distress, no accessory muscle use Cardiovascular: normal peripheral pulses, regular rate, rhythm, no edema, no murmur Peripheral Pulses: 2+ Radial Pulses (R), 2+ Radial Pulses (L) Gastrointestinal: non tender, soft Extremities: normal range of motion, normal capillary refill Neurologic/Psychiatric: alert, oriented x 3, other (anxious affect) Appearance/Memory: no memory impairment, disheveled Behavior/Eye Contact: cooperative, avoids eye contact, decreased rate of speech , other (soft, quiet) Thoughts/Hallucinations: auditory hallucinations, delusions, paranoid, persecution Skin: rash (erythematous, pruritic papules on the dorsum and between the fingers of the bilateral hands) Progress/Results/Core Measures Results/Orders Lab Results Laboratory Tests Test 08/08/18 13:19 08/08/18 13:25 Range/Units Urine Color YELLOW Urine Clarity CLEAR Urine pH 5 5-9 Urine Specific [place] 1.025 H 1.016-1.022 Urine Protein 2+ H NEGATIVE Urine Glucose (UA) NEGATIVE NEGATIVE Urine Ketones 3+ H NEGATIVE Urine Nitrite NEGATIVE NEGATIVE Urine Bilirubin 1+ H NEGATIVE Urine Urobilinogen 1 NORMAL MG/DL Urine Leukocyte Esterase 1+ H NEGATIVE Urine RBC (Auto) 2+ H NEGATIVE Urine RBC RARE /HPF Urine WBC 5-10 H /HPF Urine Squamous Epithelial Cells RARE /HPF Urine Crystals NONE /LPF Urine Bacteria FEW H /HPF Urine Casts NONE /LPF Urine Mucus MODERATE H /LPF Urine Culture Indicated YES Urine Opiates Screen NEGATIVE NEGATIVE Urine Oxycodone Screen NEGATIVE NEGATIVE Urine Methadone Screen NEGATIVE NEGATIVE Urine Propoxyphene Screen NEGATIVE NEGATIVE Urine Barbiturates Screen NEGATIVE NEGATIVE Ur Tricyclic Antidepressants Screen NEGATIVE NEGATIVE Urine Phencyclidine Screen NEGATIVE NEGATIVE Urine Amphetamines Screen NEGATIVE NEGATIVE Urine Methamphetamines Screen NEGATIVE NEGATIVE Urine Benzodiazepines Screen NEGATIVE NEGATIVE Urine Cocaine Screen NEGATIVE NEGATIVE Urine Cannabinoids Screen POSITIVE H NEGATIVE White Blood Count 10.3 4.3-11.0 10^3/uL Red Blood Count 4.78 4.35-5.85 10^6/uL Hemoglobin 15.3 13.3-17.7 G/DL Hematocrit 44 40-54 % Mean Corpuscular Volume 92 80-99 FL Mean Corpuscular Hemoglobin 32 25-34 PG Mean Corpuscular Hemoglobin Concent 35 32-36 G/DL Red Cell Distribution Width 12.6 10.0-14.5 % Platelet Count 296 130-400 10^3/uL Mean Platelet Volume 9.8 7.4-10.4 FL Neutrophils (%) (Auto) 74 42-75 % Lymphocytes (%) (Auto) 12 12-44 % Monocytes (%) (Auto) 13 H 0-12 % Eosinophils (%) (Auto) 1 0-10 % Basophils (%) (Auto) 1 0-10 % Neutrophils # (Auto) 7.7 1.8-7.8 X 10^3 Lymphocytes # (Auto) 1.2 1.0-4.0 X 10^3 Monocytes # (Auto) 1.3 H 0.0-1.0 X 10^3 Eosinophils # (Auto) 0.1 0.0-0.3 10^3/uL Basophils # (Auto) 0.1 0.0-0.1 10^3/uL Sodium Level 139 135-145 MMOL/L Potassium Level 3.9 3.6-5.0 MMOL/L Chloride Level 102 98-107 MMOL/L Carbon Dioxide Level 22 21-32 MMOL/L Anion Gap 15 H 5-14 MMOL/L Blood Urea Nitrogen 16 7-18 MG/DL Creatinine 1.02 0.60-1.30 MG/DL Estimat Glomerular Filtration Rate > 60 BUN/Creatinine Ratio 16 Glucose Level 121 H 70-105 MG/DL Calcium Level 10.2 H 8.5-10.1 MG/DL Corrected Calcium 8.5-10.1 MG/DL Total Bilirubin 3.2 H 0.1-1.0 MG/DL Aspartate Amino Transf (AST/SGOT) 140 H 5-34 U/L Alanine Aminotransferase (ALT/SGPT) 55 0-55 U/L Alkaline Phosphatase 75 40-136 U/L Total Protein 8.0 6.4-8.2 GM/DL Albumin 5.1 H 3.2-4.5 GM/DL Lipase 13 8-78 U/L TSH [place] Testing 2.72 0.35-4.94 UIU/ML Salicylates Level < 5.0 L 5.0-20.0 MG/DL Acetaminophen Level < 10 L 10-30 UG/ML Serum Alcohol < 10 <10 MG/DL My Orders Orders - SHANTANU ADAME Ua Culture If Indicated (08/08/18 13:22) Cbc With Automated Diff (08/08/18 13:22) Comprehensive Metabolic Panel (08/08/18 13:22) Alcohol (08/08/18 13:22) Drug Screen Stat (Urine) (08/08/18 13:22) Acetaminophen (08/08/18 13:22) Salicylate (08/08/18 13:22) Ekg Tracing (08/08/18 13:22) Thyroid Analyzer (08/08/18 13:22) Bh Status Checks/Observation Q15M (08/08/18 13:22) Lorazepam Tablet (Ativan Tablet) (08/08/18 13:22) Lipase (08/08/18 13:22) Chest 1 View, Ap/Pa Only (08/08/18 13:39) Folic Acid Tablet (Folic Acid Tablet) (08/08/18 13:45) Thiamine Tablet (Vitamin B-1 Tablet) (08/08/18 13:45) Urine Culture (08/08/18 13:19) Cephalexin Capsule (Keflex Capsule) (08/08/18 14:00) General/Regular (08/08/18 Lunch) Permethrin 5% Cream (Elimite 5% Cream) (08/08/18 16:00) Medications Given in ED Current Medications Medications Dose Ordered Sig/Jose Luis Route Start Time Stop Time Status Last Admin Dose Admin Cephalexin HCl 500 mg ONCE ONCE PO 08/08/18 14:00 08/08/18 14:01 DC 08/08/18 14:30 500 MG Folic Acid 1 mg ONCE ONCE PO 08/08/18 13:45 08/08/18 13:46 DC 08/08/18 14:01 1 MG Permethrin 60 gm ONCE ONCE TOP 08/08/18 16:00 08/08/18 16:01 DC 08/08/18 16:19 60 GM Thiamine HCl 100 mg ONCE ONCE PO 08/08/18 13:45 08/08/18 13:46 DC 08/08/18 14:01 100 MG Vital Signs/I&O 08/08/18 08/08/18 13:15 17:30 Temp 98.5 98.5 Pulse 123 105 Resp 18 18 B/P (MAP) 159/81 (107) 135/80 (98) Pulse Ox 97 97 O2 Delivery Room Air Progress Progress Note #1: Time: 13:36 Progress Note The patient's had depression and suicidal thoughts but he is not apparently presently suicidal. However I think he could possibly benefit from inpatient psychiatric hospitalization and the patient agrees with this. Return to get a psychiatric workup to include a lipase, chest x-ray and EKG. We'll give him some folate and thiamine by mouth. He does not appear particularly dehydrated but we will offer him some water to drink. I suspect paranoid schizophrenia unless there is some drug in his drug screen to explain his symptoms. The rash on the back of his hand would be consistent with scabies and we will make sure he has some permethrin prescribed outpatient. We'll get a chest x-ray to workup his shortness of breath but his lung sounds and normal vital signs are normal and I suspect is more just referring to the sensation of GERD. We've offered him something for the acid reflux but he says is not bothering him right now nor shortness of breath presently. He says he has a headache and took some Tylenol 3 hours prior to arrival and does not want anything else for his headache at this time. Progress Note #2: Time: 14:28 Progress Note Patient does endorse some mild dysuria so we will start him on a regimen of Keflex. We've offered him a meal. Waiting on the rest of his labs to discuss appropriate placement inpatient. Diagnostic Imaging Diagonstic Imaging: Xray Plain Films/CT/US/NM/MRI: chest (1v) Comments No acute cardiopulmonary processes noted. NAME: KENNA POWER REC#: [id number] PT STATUS: REG ER : 1985 PHYSICIAN: SHANTANU ADAME MD ADMIT DATE: 08/08/18/ER Draft Date of Exam:08/08/18 CHEST 1 VIEW, AP/PA ONLY INDICATION: Psychiatric disorder. Upright portable AP view of the chest is obtained with comparison made to study of 08/20/2016. FINDINGS: Heart size and pulmonary vascularity are within normal limits, and the lungs are clear, bilaterally. IMPRESSION: Unremarkable chest. Dictated on workstation # [id number] Dict: 08/08/18 1439 Trans: 08/08/18 1443 [facility] [id number] Interpreted by: BETSY WALKER MD Electronically signed by: Reviewed: Reviewed by Me Departure Impression Primary Impression: Psychosis Qualified Codes: F29 - Unspecified psychosis not due to a substance or known physiological condition Additional Impressions: Hallucinations Paranoid ideation Passive suicidal ideations Alcoholism /alcohol abuse GERD (gastroesophageal reflux disease) Qualified Codes: K21.0 - Gastro-esophageal reflux disease with esophagitis UTI (urinary tract infection) Qualified Codes: N30.00 - Acute cystitis without hematuria Disposition: XFER SHT-TRM HOSP Condition: Stable Transfer Time Spoke to Accepting Phy: 15:30 Transfer Progress Notes 1430: Called [facility] [place] and they are full with several patients waiting in the ER. 1430: Called [facility] [place] and left a message. 1435: Called Francisca at [facility] and will fax over information for them to review with Dr. Jernigan. 1530: [facility] unit called back and Dr. Jernigan has accepted the patient to room 3251. They have a patient still in the room that will be discharging at 1730 so we can send the patient then. The father of the patient has agreed to transport the patient and is going home to get toiletries and clothes. The patient has eaten a meal and is not hungry right now just wants to sleep. The 1 mg of Ativan has him resting comfortably with a lights off. Transfer Time: 17:30 Transfer Facility: [place], [place] [facility] inpatient psych. Method of Transfer: Private Vehicle (father) Departure-Patient Inst. Referrals: GUILLERMINA BONILLA MD (PCP/Family) Primary Care Physician Scripts Cephalexin (Cephalexin) 500 Mg Tablet 500 MG PO BID for 7 Days, #13 TAB 0 Refills Prov: SHANTANU ADAME 08/08/18 Permethrin (Permethrin) 60 Gm Cream..g. 60 GM TP ONCE for 14 Days, #2 TUBE 0 Refills Apply from the neck down to the toes at night then wear pajamas to bed. Bathe in the morning. Repeat in 2 weeks. Prov: SHANTANU ADAME 08/08/18 SHANTANU ADAME Aug 08, 2018 13:32
[2018-08-08 13:33] LABS: CLARITY,URINE CLEAR; COLOR,URINE YELLOW; GLUCOSE, URINE (UA) NEGATIVE (NEGATIVE); KETONES,URINE 3+ (NEGATIVE); LEUKOCYTE ESTERASE ,URINE 1+ (NEGATIVE); NITRITE,URINE NEGATIVE (NEGATIVE); PH,URINE 5 (5-9); PROTEIN,URINE 2+ (NEGATIVE); UROBILINOGEN,URINE 1 MG/DL (NORMAL)
[2018-08-08 13:36] LABS: BASOPHILS # (AUTO) 0.1 10^3/uL (0.0-0.1); BASOPHILS % (AUTO) 1 % (0-10); EOSINOPHILS # (AUTO) 0.1 10^3/uL (0.0-0.3); EOSINOPHILS % (AUTO) 1 % (0-10); HEMATOCRIT 44 % (40-54); HEMOGLOBIN 15.3 G/DL (13.3-17.7); LYMPHOCYTES # (AUTO) 1.2 X 10^3 (1.0-4.0); LYMPHOCYTES % (AUTO) 12 % (12-44); MEAN CORPUSCULAR HEMOGLOBIN 32 PG (25-34); MEAN CORPUSCULAR HGB CONC 35 G/DL (32-36); MEAN CORPUSCULAR VOLUME 92 FL (80-99); MEAN PLATELET VOLUME 9.8 FL (7.4-10.4); MONOCYTES # (AUTO) 1.3 X 10^3 (0.0-1.0); MONOCYTES % (AUTO) 13 % (0-12); NEUTROPHILS # (AUTO) 7.7 X 10^3 (1.8-7.8); NEUTROPHILS % (AUTO) 74 % (42-75); PLATELET COUNT 296 10^3/uL (130-400); RED CELL DISTRIBUTION WIDTH 12.6 % (10.0-14.5); WHITE BLOOD COUNT 10.3 10^3/uL (4.3-11.0)
[2018-08-08] MEDS ORDERED: THIAMINE 100 MG (VITAMIN B-1) TAB PO ONE (13:45)
[2018-08-08] MEDS ORDERED: FOLIC ACID 1 MG TAB PO ONE (13:45)
[2018-08-08 13:47] LABS: BACTERIA,URINE FEW /HPF; BILIRUBIN,URINE 1+ (NEGATIVE); RBC,URINE RARE /HPF; SQUAMOUS EPITHELIAL CELL,UR RARE /HPF
[2018-08-08 13:51] LABS: AMPHETAMINE SCREEN, URINE NEGATIVE (NEGATIVE); BARBITURATE SCREEN URINE NEGATIVE (NEGATIVE); BENZODIAZEPINES SCREEN URINE NEGATIVE (NEGATIVE); CANNABINOID SCREEN, URINE POSITIVE (NEGATIVE); COCAINE SCREEN URINE NEGATIVE (NEGATIVE); METHADONE STAT NEGATIVE (NEGATIVE); METHAMPHETAMINE SCREEN URINE S NEGATIVE (NEGATIVE); OPIATE SCREEN URINE NEGATIVE (NEGATIVE); OXYCODONE STAT NEGATIVE (NEGATIVE); PROPOXYPHENE STAT NEGATIVE (NEGATIVE); TRICYCLIC ANTIDEPRESSANTS SCRE NEGATIVE (NEGATIVE)
[2018-08-08 13:59] LABS: ACETAMINOPHEN < 10 UG/ML (10-30); ALANINE AMINOTRANSFERASE 55 U/L (0-55); ALBUMIN 5.1 GM/DL (3.2-4.5); ALKALINE PHOSPHATASE 75 U/L (40-136); BILIRUBIN,TOTAL 3.2 MG/DL (0.1-1.0); BUN/CREATININE RATIO 16; CALCIUM 10.2 MG/DL (8.5-10.1); CARBON DIOXIDE 22 MMOL/L (21-32); CHLORIDE 102 MMOL/L (98-107); CREATININE SERUM 1.02 MG/DL (0.60-1.30); GFR ESTIMATED > 60; GLUCOSE 121 MG/DL (70-105); LIPASE 13 U/L (8-78); POTASSIUM 3.9 MMOL/L (3.6-5.0); SALICYLATE < 5.0 MG/DL (5.0-20.0); SODIUM 139 MMOL/L (135-145)
[2018-08-08] MEDS ORDERED: CEPHALEXIN 250 MG (KEFLEX) CAP PO ONE (14:00)
--- NOTE | 2018-08-08 14:44 | Diagnostic Imaging Report ---
INDICATION: Psychiatric disorder. Upright portable AP view of the chest is obtained with comparison made to study of 08/20/2016. FINDINGS: Heart size and pulmonary vascularity are within normal limits, and the lungs are clear, bilaterally. IMPRESSION: Unremarkable chest. Dictated by: Dictated on workstation # [id number]
[2018-08-08] MEDS ORDERED: PERM60CR4 TP (15:07)
[2018-08-08] MEDS ORDERED: CEPH500T PO (15:57)
[2018-08-08] MEDS ORDERED: PERMETHRIN (ELIMITE) 5% CR 60 GM TUBE TOP ONE (16:00)
[2018-08-08 17:30] VITALS: BP 135/80
== END 2018-08-08 17:32 | disposition short-term general hospital (02) ==
LOC: EDUNIT# 13:01 → ER 13:03
DX: F22 Delusional disorders (principal); F10.20 Alcohol dependence, uncomplicated; N39.0 Urinary tract infection, site not specified; R44.1 Visual hallucinations; R44.0 Auditory hallucinations; K21.9 Gastro-esophageal reflux disease without esophagitis; G47.30 Sleep apnea, unspecified; F12.10 Cannabis abuse, uncomplicated; Z87.891 Personal history of nicotine dependence; Z88.2 Allergy status to sulfonamides; Z88.0 Allergy status to penicillin; Z88.8 Allergy status to other drugs, medicaments and biological substances
CPT/HCPCS: 36415; 71045; 80053; 80306; 80320; 80329; 81000; 83690; 84443; 85025; 87088; 93005

== ENCOUNTER 2020-09-22 08:02 | Day surgery (SDC) | payer SELFPAY ==
[2020-09-22] VITALS (11 sets, daily range): BP systolic 114–145; BP diastolic 63–97
[~2020-09-22] VITALS: Ht 195 cm; Wt 86.0 kg
[~2020-09-22 08:02] MED LIST changes: +CEPH500T PO; +OMEP40CA27 PO; -OMEP40CA36 PO; +PERM60CR4 TP
[2020-09-22] MEDS ORDERED: GLUCAGON EMERGENCY 1 MG/KIT IV ONE (08:30)
[2020-09-22] MEDS ORDERED: LACTATED RINGERS 1,000 ML IV ONE (08:30)
[2020-09-22] MEDS ORDERED: FAMOTIDINE 20MG/2ML IV (PEPCID) IVP ONE (08:30)
--- NOTE | 2020-09-22 09:06 | ED GI ---
General Chief Complaint: Foreign Body Stated Complaint: DIFFICULTY SWALLOWING Nursing Triage Note: POSS FOOD BOLUS YESTERDAY, CHICKEN Sepsis Screen: No Definite Risk Source of Information: Patient Exam Limitations: No Limitations History of Present Illness Date Seen by Provider: September 22, 2020 Time Seen by Provider: 08:15 Initial Comments This 35-year-old gentleman presents to the emergency room with inability to swallow food or fluid NSAIDs yesterday morning. He was eating chicken when he believed a food bolus got stuck. Anything he has tried to consume since then is regurgitated up. He has some mild discomfort similar to heartburn. He reports food bolus obstruction about 3 years ago requiring endoscopic removal. Allergies and Home Medications Allergies Coded Allergies: sulfamethoxazole (Verified Allergy, Intermediate, RASH, 11/05/13) trimethoprim (Verified Allergy, Intermediate, RASH, 11/05/13) Penicillins (Verified Allergy, Unknown, HIVES, 11/05/13) Home Medications Cephalexin 500 Mg Tablet, 500 MG PO BID Prescribed by: SHANTANU ADAME on 08/08/18 1557 Multivitamin 1 Each Tablet, 1 TAB PO DAILY, (Reported) Pantoprazole Sodium 40 Mg Tablet.dr, 40 MG PO DAILY Prescribed by: KEREN ALAN on 08/20/16 1403 Permethrin 60 Gm Cream..g., 60 GM TP ONCE Apply from the neck down to the toes at night then wear pajamas to bed. Bathe in the morning. Repeat in 2 weeks. Prescribed by: SHANTANU ADAME on 08/08/18 1507 Sucralfate 1 Gm Tablet, 1 GM PO QID Prescribed by: KEREN ALAN on 08/20/16 1403 Patient Home Medication List Home Medication List Reviewed: Yes Review of Systems Review of Systems Constitutional: no symptoms reported EENTM: No Symptoms Reported Respiratory: No Symptoms Reported Cardiovascular: No Symptoms Reported Gastrointestinal: See HPI Genitourinary: No Symptoms Reported Musculoskeletal: no symptoms reported Skin: no symptoms reported Psychiatric/Neurological: No Symptoms Reported Endocrine: No Symptoms Reported Past Kgdfwqb-Kaaxon-Plmceg Hx Past Med/Social Hx: Reviewed Nursing Past Med/Soc Hx Patient Social History Alcohol Use: Occasionally Uses Number of Drinks Today: 0 Alcohol Beverage of Choice: Beer, Cheap Liquor, Vodka Drug of Choice: marijuana Smoking Status: Former Smoker Type Used: Cigarettes Recent Infectious Disease Expo: No Recent Hopitalizations: No Immunizations Up To Date Tetanus Booster (TDap): Less than 5yrs Seasonal Allergies Seasonal Allergies: No Past Medical History Surgeries: Yes (EGD W ESOPHAGEAL DILIATION) Orthopedic Respiratory: No Cardiac: No Neurological: No Genitourinary: No Gastrointestinal: Yes (Esophogeal stricture) Gastroesophageal Reflux Musculoskeletal: No Endocrine: No HEENT: No Cancer: No Psychosocial: No Integumentary: No Blood Disorders: No Adverse Reaction/Blood Tranf: No Physical Exam Vital Signs Vital Signs - First Documented 09/22/20 08:05 Temp 36.1 Pulse 103 Resp 20 B/P (MAP) 137/100 (112) Pulse Ox 95 Capillary Refill : Less Than 3 Seconds Height/Weight/BMI Height: 5'10.00" Weight: 140lbs. 5.0oz. 63.276982zz; 22.00 BMI Method:Estimated General Appearance: WD/WN, no apparent distress HEENT: normal ENT inspection Neck: normal inspection Respiratory: lungs clear, normal breath sounds, no respiratory distress Cardiovascular: regular rate, rhythm, no edema, no murmur Gastrointestinal: normal bowel sounds, non tender, soft Extremities: normal inspection Neurologic/Psychiatric: card puncher II-XII nml as tested, no motor/sensory deficits, alert, normal mood/affect, oriented x 3 Skin: normal color, warm/dry Progress/Results/Core Measures Results/Orders My Orders Orders - BABATUNDE ESCOBEDO MD Glucagon Emergency Kit (Glucagon Emergen (09/22/20 08:30) Famotidine Injection (Pepcid Injection) (09/22/20 08:30) Ed Iv/Invasive Line Start (09/22/20 08:20) Lactated Ringers (Lr 1000 Ml Iv Solution (09/22/20 08:30) Medications Given in ED Current Medications Medications Dose Ordered Sig/Jose Luis Route Start Time Stop Time Status Last Admin Dose Admin Famotidine 20 mg ONCE ONCE IVP 09/22/20 08:30 09/22/20 08:31 DC 09/22/20 08:33 20 MG Glucagon 1 mg ONCE ONCE IV 09/22/20 08:30 09/22/20 08:31 DC 09/22/20 08:32 1 MG Lactated Ringer's 1,000 ml @ 0 mls/hr Q0M ONCE IV 5/9/21 08:30 09/22/20 08:31 DC 09/22/20 08:32 1,000 MLS/HR Vital Signs/I&O 09/22/20 08:05 Temp 36.1 Pulse 103 Resp 20 B/P (MAP) 137/100 (112) Pulse Ox 95 Blood Pressure Mean: 112 Progress Progress Note : Progress Note Patient was treated with Pepcid and glucagon. This did not result in alleviation of the obstruction. Dr. Haile was consulted and took him for endoscopic removal of the bolus. Dilatation was also performed during the procedure. He received a liter of IV fluid. He was discharged home after recovery. Departure Impression Primary Impression: Esophageal obstruction Additional Impression: Foreign body in esophagus Qualified Codes: T18.108A - Unspecified foreign body in esophagus causing other injury, initial encounter Disposition: 01 HOME, SELF-CARE Condition: Improved (ERASED) Departure-Patient Inst. Referrals: GUILLERMINA HAWKINS MD (PCP/Family) Primary Care Physician Copy Copies To 1: GUILLERMINA HAWKINS MD Copies To 2: MELLY HAILE MD, JOSHUA T MD September 22, 2020 09:05
--- NOTE | 2020-09-22 09:42 | Conscious Sedation/ASA ---
Conscious Sedation Pre-Proced Time 09:30 ASA Score 2 For ASA 3 and 4: Consider anesthesia and medical clearance. Also, for patients with a history of failed moderate sedation consider anesthesia. Airway Lungs Heart ASA score ASA 1: a normal healthy patient ASA 2: a patient with a mild systemic disease (mid diabetes, controlled hypertension, obesity ASA 3: a patient with a severe systemic disease that limits activity (angina, COPD, prior Myocardial infarction) ASA 4: a patient with an incapacitating disease that is a constant threat to life (CHF, renal failure) ASA 5: a moribund patient not expected to survive 24 hrs. (ruptured aneurysm) ASA 6: a declared brain- patient whose organs are being harvested. For emergent operations, add the letter E after the classification Mallampati Classification Grade 2 Sedation Plan Analgesia, Amnesia, Plan communicated to team members, Discussed options with patient/fam, Discussed risks with patient/fam The patient is an appropriate candidate to undergo the planned procedure, sedation, and anesthesia. The patient immediately re-assessed prior to indication. MELLY RAWLS MD September 22, 2020 09:42
--- NOTE | 2020-09-22 09:43 | Progress Note-Pre Operative ---
Pre-Operative Progress Note H&P Reviewed The H&P was reviewed, patient examined and no changes noted. Date Seen by Provider: September 22, 2020 Time Seen by Provider: :30 Date H&P Reviewed: September 22, 2020 Time H&P Reviewed: :30 Pre-Operative Diagnosis: esophageal foreign body, GERD MELLY RAWLS MD September 22, 2020 09:43
[2020-09-22] MEDS ORDERED: NS IV 500 ML 500 ML ONE (10:07)
[2020-09-22] MEDS ORDERED: MIDAZOLAM 5 MG/5 ML (VERSED) VIAL ONE ×3 (10:15→10:39)
[2020-09-22] MEDS ORDERED: LIDOCAINE JELLY 2% 6 ML SYRINGE ONE (10:15)
[2020-09-22] MEDS ORDERED: fentaNYL INJ 100 MCG/2 ML AMP ONE ×2 (10:15→10:44)
--- NOTE | 2020-09-22 10:33 | HISTORY AND PHYSICAL ---
DATE OF SERVICE: DATE OF ADMISSOIN: 09/22/2020. ATTENDING PRIMARY CARE PHYSICIAN: Dr. Bonilla. HISTORY OF PRESENT ILLNESS: The patient is a 35-year-old male who states that he was eating chicken yesterday and then did feel a substernal pressure sensation and then eventual dysphagia that persisted overnight. He states that he has had this before and has had esophageal foreign body removed in the past as well as a dilatation. He does have a history of gastroesophageal reflux disease and does have risk factors including drinking alcohol as well as a smoking. PAST MEDICAL HISTORY: Gastroesophageal reflux disease, esophageal stricture. PAST SURGICAL HISTORY: None. ALLERGIES: BACTRIM, PENICILLIN. MEDICATIONS: Cephalexin 500 mg b.i.d., Protonix 40 mg daily. SOCIAL HISTORY: Positive for alcohol and smoking. VITAL SIGNS: Temperature 36.1, blood pressure 137/100, pulse 100, respirations 20, pulse ox 95% on room air. REVIEW OF SYSTEMS: A well-nourished male currently in no acute distress. He is not experiencing any shortness of breath or difficulty breathing. He does have a substernal pressure sensation as well as inability to swallow. No hematemesis, no coffee ground emesis. No change in bowel habits. No fever, chills, no recent inadvertent weight loss. PHYSICAL EXAMINATION: CHEST: Clear. Good breath sounds bilaterally. HEART: Regular, no murmurs. EXTREMITIES: No lower extremity edema, negative Homans sign. HEENT: No scleral icterus. NECK: No cervical lymphadenopathy. ABDOMEN: Soft, nondistended. There is mild discomfort in the epigastric region. No hernias. SKIN: Warm, dry. ASSESSMENT AND PLAN: A 35-year-old male with history of gastroesophageal reflux disease and esophageal stricture with symptomatic esophageal foreign body. We will proceed with the EGD as well as removal of foreign body as well as possible balloon dilatation. Job ID: [id number] DocumentID: [id number] Dictated Date: 09/22/2020 09:41:48 Sports Doctor Date: 09/22/2020 10:32:12 Dictated By: MELLY RAWLS MD
--- NOTE | 2020-09-22 11:24 | Progress Note-Post Operative ---
Post-Operative Progess Note Surgeon (s)/Wastewater Process Engineer (s) Surgeon MELLY RAWLS MD Wastewater Process Engineer: none Pre-Operative Diagnosis esophageal foreign body, GERD Post-Operative Diagnosis esophageal FB, reflux esophagitis(stage 3), distal esophageal stricture, moderate HH(2.5cm), mild gastritis. Procedure & Operative Findings Date of Procedure 09/22/20 Procedure Performed/Findings EGD with removal FB and ballon dilatation. Anesthesia Type cs Estimated Blood Loss Estimated blood loss (mL): minimal Specimens/Packing Specimens Removed none MELLY RAWLS MD September 22, 2020 11:24
--- NOTE | 2020-09-22 11:25 | Discharge Inst-Surgical ---
D/C Lap Instructions-CURLY Follow Up PRN Activity as tolerated High Fiber Diet 25g or more per day Avoid Alcohol, Caffeine, Spicy [place] and Acid foods. Drink 64 fluid oz or more of fluids per day. Symptoms to Report: Fever over 101 degree F, Nausea/Vomiting If any problems/questions: Contact your physician or go to Emergency Room MELLY RAWLS MD September 22, 2020 11:25
[2020-09-22] MEDS ORDERED: HURRICAINE EXT TUBE (BENZOCAINE) XX PRN (11:30)
[2020-09-22] MEDS ORDERED: NS IV 500 ML 500 ML IV PRN (11:30)
[2020-09-22] MEDS ORDERED: fentaNYL INJ 100 MCG/2 ML AMP IVP ONE (11:30)
[2020-09-22] MEDS ORDERED: LIDOCAINE JELLY 2% 6 ML SYRINGE MM PRN (11:30)
[2020-09-22] MEDS ORDERED: MIDAZOLAM 5 MG/5 ML (VERSED) VIAL IV ONE (11:30)
--- NOTE | 2020-09-22 15:38 | OPERATIVE REPORT ---
DATE OF SERVICE: 09/22/2020 ATTENDING PRIMARY CARE PHYSICIAN: Dr. Bonilla. PREOPERATIVE DIAGNOSES: Esophageal foreign body, gastroesophageal reflux disease, history of esophageal stricture. POSTOPERATIVE DIAGNOSES: Esophageal foreign body, reflux esophagitis stage III, distal esophageal stricture, small to moderate size hiatal hernia approximately 2.5 cm in size, mild gastritis. No distal obstructions. PROCEDURES: EGD, removal of esophageal foreign body and balloon dilatation. SURGEON: Melly Rawls MD. ANESTHESIA: Conscious sedation. ESTIMATED BLOOD LOSS: Minimal. FINDINGS: Esophageal foreign body, reflux esophagitis stage III, distal esophageal stricture, small to moderate size hiatal hernia approximately 2.5 cm in size, mild gastritis. No distal obstructions. DISPOSITION: The patient tolerated the procedure well. INDICATIONS: The patient is a 35-year-old male who states he was eating chicken yesterday and felt a substernal pressure sensation and eventual dysphagia that persisted overnight. He has had this before and had an EGD as well as esophageal foreign body removal as well as dilatation in the past. He does have a history of gastroesophageal reflux disease and does have risk factors including drinking alcohol as well as smoking. DESCRIPTION OF PROCEDURE: The patient was brought to the endoscopy suite, laid in the left lateral decubitus position with head flat. After adequate IV pain and sedative medications and conscious sedation anesthesia, the mouthpiece was applied. The endoscope was placed in the mouth, visualizing the pharynx and hypopharyngeal region. Vocal cords, epiglottis and vallecula identified and appeared to be normal. The endoscope was then gently intubated. Esophageal opening and esophagus insufflated. The endoscope was then advanced through the first, second and third portions of esophagus at the level of the GE junction, an esophageal foreign body, likely consistent with a food particulate matter was identified. This appeared soft and pliable and this was a gentle pressure using the endoscope was used to reduce the foreign body into the stomach under direct visualization. Good hemostasis was achieved as well as no mucosal tears. A reflux esophagitis stage III identified as well as a distal esophageal stricture. The endoscope was then advanced in the stomach. The endoscope retroflexed, visualizing a small to moderate size hiatal hernia approximately 2.5 cm in size. There was a mild gastritis. The pylorus and duodenum appeared normal with no distal obstructions. We then proceeded with balloon dilatation of the distal esophageal stricture and the balloon was placed in the stomach and pulled back to the area of the stricture. We then proceeded in a gradual stepwise fashion from 2, 4 and then eventually to 6 atmospheres of pressure or 20 mm in luminal diameter. This was left in place for 60 seconds. The balloon was then desufflated and removed with visualization of good hemostasis as well as no mucosal tears. The endoscope was then slowly withdrawn while taking a second look and suctioning of residual air with no additional findings. The patient tolerated the procedure well. We will recommend the necessary lifestyle and diet accommodation including cessation from drinking and smoking as well as avoidance of caffeinated beverages, spicy, greasy and acidic foods. He also needs to take in small and more frequent meals and avoid eating at night. He is currently on Protonix and we will have him continue with that medication regimen. Job ID: [id number] DocumentID: [id number] Dictated Date: 09/22/2020 11:31:44 Aircraft Air Conditioning Mechanic Date: 09/22/2020 15:38:02 Dictated By: MELLY RAWLS MD
== END 2020-09-22 11:55 | disposition home or self-care (01) ==
LOC: EDUNIT# 08:02 → ER 08:03 → ENDO 10:31
PROVIDERS: ATTEND Surgery
DX: T18.108A Unspecified foreign body in esophagus causing other injury, initial encounter (principal); K22.2 Esophageal obstruction; K44.9 Diaphragmatic hernia without obstruction or gangrene; K29.70 Gastritis, unspecified, without bleeding; Z79.2 Long term (current) use of antibiotics; Z88.0 Allergy status to penicillin; Z88.2 Allergy status to sulfonamides; Z88.1 Allergy status to other antibiotic agents; Z79.899 Other long term (current) drug therapy; Z87.891 Personal history of nicotine dependence